=== PATIENT | female | born 2005 | race Hispanic/Latino ===

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

== ENCOUNTER 2024-03-30 17:27 | Emergency (ER) | payer MEDICAID ==
[~2024-03-30] VITALS: Ht 157.5 cm; Wt 115.0 kg
[~2024-03-30 17:27] MED LIST changes: +DICYCLOMINE HYD10 MG PO
[2024-03-30 20:18] VITALS: BP 101/65
== END 2024-03-30 21:28 | disposition left against medical advice (07) | DRG 951 ==
LOC: ED 17:27 → LWOBS 21:28
DX: Z53.21 Procedure and treatment not carried out due to patient leaving prior to being seen by health care provider (principal); R09.89 Other specified symptoms and signs involving the circulatory and respiratory systems

== ENCOUNTER 2024-04-02 16:57 | Emergency (ER) | payer OTHER, MEDICAID ==
[~2024-04-02] VITALS: Ht 157.5 cm; Wt 113.3 kg
[2024-04-02] VITALS (11 sets, daily range): BP systolic 67–105; BP diastolic 37–63
[2024-04-02] MEDS ORDERED: METHOCARBAMOL 500 MG/TAB PO ONE (17:15)
[2024-04-02] MEDS ORDERED: METHOCARBAMOL500 MG PO (18:52)
[2024-04-02] MEDS ORDERED: IBUPROFEN600 MG PO (18:52)
== END 2024-04-02 19:08 | disposition home or self-care (01) | DRG 552 ==
LOC: ED 16:57
DX: S16.1XXA Strain of muscle, fascia and tendon at neck level, initial encounter (principal); V43.52XA Car driver injured in collision with other type car in traffic accident, initial encounter; S43.402A Unspecified sprain of left shoulder joint, initial encounter

== ENCOUNTER 2024-04-12 11:50 | Emergency (ER) | payer MEDICAID ==
[~2024-04-12] VITALS: Ht 157.5 cm; Wt 113.4 kg
[~2024-04-12 11:50] MED LIST changes: +IBUPROFEN600 MG PO; +METHOCARBAMOL500 MG PO
[2024-04-12 12:18] VITALS: BP 108/72
[2024-04-12 12:31] VITALS: BP 97/55
[2024-04-12] MEDS ORDERED: MAXITROL0.11 OU (12:42)
[2024-04-12] MEDS ORDERED: MEDDOSEPAK PO (12:42)
[2024-04-12 13:20] VITALS: BP 97/55
== END 2024-04-12 13:23 | disposition home or self-care (01) ==
LOC: ED 11:50
DX: H10.13 Acute atopic conjunctivitis, bilateral (principal); J45.909 Unspecified asthma, uncomplicated; E66.9 Obesity, unspecified
CPT/HCPCS: J1100